=== PATIENT | female | born 1970 | race Caucasian/White ===

== ENCOUNTER → 2019-01-01 | Outpatient (CLI) | payer MEDICARE ==
[2019-01-01 12:55] LABS: Alanine Aminotransfer (ALT/SGP 21 U/L (12-78); Albumin, Blood 3.8 g/dL (3.4-5.0); Alk Phos 96 U/L (40-126); Anion Gap 11 mmol/L (6-16); Aspartate Aminotrans (AST/SGOT 17 U/L (12-37); Bilirubin, Total 0.3 mg/dL (0.1-1.0); Blood Urea Nitrogen 15 mg/dL (8-24); Bun/Creatinine Ratio 18.1 (12.0-20.0); CO2, Blood 27 mmol/L (21-32); Chloride, Blood 102 mmol/L (98-108); Creatinine, Blood 0.83 mg/dL (0.40-1.00); Globulin, Blood 3.8 g/dL (2.2-4.0); Glomerular Filtration Rate >60 (60-); Glucose, Blood 113 mg/dL (70-99); Sodium, Blood 140 mmol/L (136-145); Total Protein, Blood 7.6 g/dL (6.4-8.2)
[2019-01-01 13:03] LABS: BASOPHILS ABSOLUTE AUTO 0.08 K/mm3 (0.00-0.23); BASOPHILS PERCENT AUTO 1 % (0-2); EOSINOPHILS ABSOLUTE AUTO 0.36 K/mm3 (0.00-0.68); EOSINOPHILS PERCENT AUTO 4 % (0-6); Hematocrit 34.1 % (33.0-51.0); Hemoglobin 9.6 g/dL (11.5-16.0); IMMATURE GRAN ABSOLUTE AUTO 0.02 K/mm3 (0.00-0.10); IMMATURE GRAN PERCENT AUTO 0 % (0-1); LYMPHOCYTES ABSOLUTE AUTO 1.78 K/mm3 (0.84-5.20); LYMPHOCYTES PERCENT AUTO 19 % (21-46); MONOCYTES PERCENT AUTO 5 % (4-13); Mean Corpuscular HGB 20.6 pg (26.0-34.0); Mean Corpuscular HGB Conc 28.2 g/dL (31.5-36.5); Mean Corpuscular Volume 73 fL (80-100); Mean Platelet Volume 9.8 fL (9.1-12.4); NEUTROPHILS ABSOLUTE AUTO 6.72 K/mm3 (1.96-9.15); NEUTROPHILS PERCENT AUTO 71 % (41-73); Platelet Count 385 K/mm3 (150-400); RDW Coefficient Variation 17.3 % (11.7-14.2); Red Blood Cell Count 4.66 M/mm3 (3.80-5.20); White Blood Cell Count 9.46 K/mm3 (4.00-11.30)
== END | disposition home or self-care (01) ==
LOC: LAB SHORT 12:39 → LAB EV 12:39
PROVIDERS: Physician Assistant
DX: G40.909 Epilepsy, unspecified, not intractable, without status epilepticus (principal)
CPT/HCPCS: 80053; 85025

== ENCOUNTER → 2020-01-13 | Outpatient (CLI) | payer MEDICARE, OTHER ==
[~2020-01-13] MED LIST: IRON150C PO; LAMO100 PO
[2020-01-13 14:32] LABS: BASOPHILS ABSOLUTE AUTO 0.08 K/mm3 (0.00-0.23); BASOPHILS PERCENT AUTO 1 % (0-2); EOSINOPHILS ABSOLUTE AUTO 0.47 K/mm3 (0.00-0.68); EOSINOPHILS PERCENT AUTO 5 % (0-6); Hematocrit 29.4 % (33.0-51.0); Hemoglobin 8.5 g/dL (11.5-16.0); IMMATURE GRAN ABSOLUTE AUTO 0.03 K/mm3 (0.00-0.10); IMMATURE GRAN PERCENT AUTO 0 % (0-1); LYMPHOCYTES ABSOLUTE AUTO 1.86 K/mm3 (0.84-5.20); LYMPHOCYTES PERCENT AUTO 18 % (21-46); MONOCYTES PERCENT AUTO 6 % (4-13); Mean Corpuscular HGB 20.6 pg (26.0-34.0); Mean Corpuscular HGB Conc 28.9 g/dL (31.5-36.5); Mean Corpuscular Volume 71 fL (80-100); Mean Platelet Volume 9.9 fL (9.1-12.4); NEUTROPHILS ABSOLUTE AUTO 7.48 K/mm3 (1.96-9.15); NEUTROPHILS PERCENT AUTO 71 % (41-73); Platelet Count 359 K/mm3 (150-400); RDW Coefficient Variation 17.5 % (11.7-14.2); RDW Standard Deviation 43.9 fL (35.1-46.3); Red Blood Cell Count 4.13 M/mm3 (3.80-5.20); White Blood Cell Count 10.52 K/mm3 (4.00-11.30)
[2020-01-13 14:45] LABS: Alanine Aminotransfer (ALT/SGP 24 U/L (12-78); Albumin, Blood 3.8 g/dL (3.4-5.0); Albumin/Globulin Ratio 0.9 (0.8-1.8); Alk Phos 92 U/L (40-126); Anion Gap 9 mmol/L (6-16); Aspartate Aminotrans (AST/SGOT 19 U/L (12-37); Bilirubin, Total 0.3 mg/dL (0.1-1.0); Blood Urea Nitrogen 10 mg/dL (8-24); Bun/Creatinine Ratio 14.7 (12.0-20.0); CO2, Blood 27 mmol/L (21-32); Calcium, Blood 8.3 mg/dL (8.5-10.1); Chloride, Blood 104 mmol/L (98-108); Creatinine, Blood 0.68 mg/dL (0.40-1.00); Globulin, Blood 4.1 g/dL (2.2-4.0); Glomerular Filtration Rate >60 (60-); Glucose, Blood 92 mg/dL (70-99); Potassium, Blood 3.8 mmol/L (3.5-5.5); Sodium, Blood 140 mmol/L (136-145); Total Protein, Blood 7.9 g/dL (6.4-8.2)
== END ==
LOC: LAB EV 14:28 → LAB SHORT 14:28
PROVIDERS: Physician Assistant
DX: G40.909 Epilepsy, unspecified, not intractable, without status epilepticus (principal)
CPT/HCPCS: 80053; 85025

== ENCOUNTER → 2020-03-30 | Outpatient (CLI) | payer MEDICARE, OTHER ==
[2020-04-01 16:08] LABS: CHLAMYDIA BY NAA Negative (Negative); GONOCOCCUS BY NAA Negative (Negative); TRICH VAG BY NAA Negative (Negative)
== END | disposition home or self-care (01) ==
LOC: LAB EV 16:15 → LAB SHORT 16:15
PROVIDERS: Physician Assistant Medical
DX: N93.9 Abnormal uterine and vaginal bleeding, unspecified (principal)
CPT/HCPCS: 87491; 87591; 87661

== ENCOUNTER 2020-07-19 15:00 | Emergency (ER) | payer MEDICARE, OTHER ==
[~2020-07-19] VITALS: Ht 157.5 cm; Wt 68.0 kg
[~2020-07-19 15:00] MED LIST changes: +ASPI81CH; +ATOR20; +FERSU300; +Lamictal150 MG PO; +MGO400 MG PO; +SODCHL1
[2020-07-19 15:43] LABS: BASOPHILS ABSOLUTE AUTO 0.07 K/mm3 (0.00-0.23); BASOPHILS PERCENT AUTO 1 % (0-2); EOSINOPHILS ABSOLUTE AUTO 0.39 K/mm3 (0.00-0.68); EOSINOPHILS PERCENT AUTO 4 % (0-6); Hematocrit 36.2 % (33.0-51.0); Hemoglobin 11.8 g/dL (11.5-16.0); IMMATURE GRAN ABSOLUTE AUTO 0.03 K/mm3 (0.00-0.10); IMMATURE GRAN PERCENT AUTO 0 % (0-1); LYMPHOCYTES ABSOLUTE AUTO 3.22 K/mm3 (0.84-5.20); LYMPHOCYTES PERCENT AUTO 32 % (21-46); MONOCYTES PERCENT AUTO 6 % (4-13); Mean Corpuscular HGB 27.4 pg (26.0-34.0); Mean Corpuscular HGB Conc 32.6 g/dL (31.5-36.5); Mean Corpuscular Volume 84 fL (80-100); NEUTROPHILS ABSOLUTE AUTO 5.86 K/mm3 (1.96-9.15); NEUTROPHILS PERCENT AUTO 58 % (41-73); Platelet Count 314 K/mm3 (150-400); RDW Coefficient Variation 23.9 % (11.7-14.2); RDW Standard Deviation 68.8 fL (35.1-46.3); Red Blood Cell Count 4.31 M/mm3 (3.80-5.20); White Blood Cell Count 10.17 K/mm3 (4.00-11.30)
[2020-07-19 16:07] LABS: Valproic Acid 3.3 ug/mL (50.0-100.0)
[2020-07-19 16:08] LABS: Alanine Aminotransfer (ALT/SGP 26 U/L (12-78); Albumin, Blood 4.2 g/dL (3.4-5.0); Albumin/Globulin Ratio 1.2 (0.8-1.8); Alk Phos 96 U/L (50-136); Anion Gap 8 mmol/L (6-16); Aspartate Aminotrans (AST/SGOT 15 U/L (12-37); Bilirubin, Total 0.5 mg/dL (0.1-1.0); Blood Urea Nitrogen 13 mg/dL (8-24); Bun/Creatinine Ratio 17.8 (12.0-20.0); CO2, Blood 25 mmol/L (21-32); Calcium, Blood 9.3 mg/dL (8.5-10.1); Chloride, Blood 107 mmol/L (98-108); Creatinine, Blood 0.73 mg/dL (0.40-1.00); Globulin, Blood 3.5 g/dL (2.2-4.0); Glomerular Filtration Rate >60 (60-); Glucose, Blood 128 mg/dL (70-99); Potassium, Blood 3.7 mmol/L (3.5-5.5); Sodium, Blood 140 mmol/L (136-145); Total Protein, Blood 7.7 g/dL (6.4-8.2)
[2020-07-19 19:35] LABS: Appearance, Urine Clear (Clear); Bilirubin, Urine Neg (Neg); Blood, Urine Neg (Neg); Color, Urine Yellow (P-Yellow); Glucose Qualitative, Urine Neg (Neg); Ketones, Urine Neg (Neg); Leukocyte Esterase, Urine Neg (Neg); Nitrite, Urine Neg (Neg); Protein, Urine 1+ (Neg); Urobilinogen, Urine NORM (Normal)
[2020-07-19 19:47] LABS: U Amphetamine Screen Not Detected; U Barbituate Screen Not Detected; U Benzodiazapine Screen Not Detected; U Buprenorphine Screen Not Detected; U Cannabinoids Screen Not Detected; U Cocaine Screen Not Detected; U Methadone Screen Not Detected; U Methamphetamine Screen Not Detected; U Opiates Screen Not Detected; U Oxycodone Screen Not Detected; U Phencyclidine Screen Not Detected; U Propoxyphene Screen Not Detected
[2020-07-19] MEDS ORDERED: Lamictal150 MG PO (19:59)
== END 2020-07-19 20:09 | disposition home or self-care (01) ==
LOC: ER 15:00
PROVIDERS: Emergency Medicine; Physician Assistant
DX: G40.909 Epilepsy, unspecified, not intractable, without status epilepticus (principal); S80.212A Abrasion, left knee, initial encounter; S09.90XA Unspecified injury of head, initial encounter; Z79.82 Long term (current) use of aspirin; Z79.899 Other long term (current) drug therapy; W18.30XA Fall on same level, unspecified, initial encounter; Y92.481 Parking lot as the place of occurrence of the external cause
CPT/HCPCS: 70450; 80053; 80164; 85025; 93005; 93010; 99285-25

== ENCOUNTER 2020-09-05 21:40 | Emergency (ER) | payer MEDICARE, OTHER ==
[~2020-09-05] VITALS: Ht 157.5 cm; Wt 68.0 kg
[2020-09-05 22:23] LABS: BASOPHILS ABSOLUTE AUTO 0.07 K/mm3 (0.00-0.23); BASOPHILS PERCENT AUTO 1 % (0-2); EOSINOPHILS ABSOLUTE AUTO 0.39 K/mm3 (0.00-0.68); EOSINOPHILS PERCENT AUTO 5 % (0-6); Hematocrit 36.8 % (33.0-51.0); Hemoglobin 12.1 g/dL (11.5-16.0); IMMATURE GRAN ABSOLUTE AUTO 0.02 K/mm3 (0.00-0.10); IMMATURE GRAN PERCENT AUTO 0 % (0-1); LYMPHOCYTES ABSOLUTE AUTO 2.09 K/mm3 (0.84-5.20); LYMPHOCYTES PERCENT AUTO 25 % (21-46); MONOCYTES ABSOLUTE AUTO 0.55 K/mm3 (0.16-1.47); MONOCYTES PERCENT AUTO 6 % (4-13); Mean Corpuscular HGB 28.1 pg (26.0-34.0); Mean Corpuscular HGB Conc 32.9 g/dL (31.5-36.5); Mean Corpuscular Volume 85 fL (80-100); Mean Platelet Volume 9.5 fL (9.1-12.4); NEUTROPHILS ABSOLUTE AUTO 5.41 K/mm3 (1.96-9.15); NEUTROPHILS PERCENT AUTO 64 % (41-73); Platelet Count 375 K/mm3 (150-400); RDW Coefficient Variation 13.3 % (11.7-14.2); Red Blood Cell Count 4.31 M/mm3 (3.80-5.20); White Blood Cell Count 8.53 K/mm3 (4.00-11.30)
[2020-09-05 22:43] LABS: Alanine Aminotransfer (ALT/SGP 18 U/L (12-78); Albumin, Blood 4.4 g/dL (3.4-5.0); Albumin/Globulin Ratio 1.3 (0.8-1.8); Alk Phos 81 U/L (50-136); Anion Gap 7 mmol/L (6-16); Aspartate Aminotrans (AST/SGOT 14 U/L (12-37); Bilirubin, Total 0.6 mg/dL (0.1-1.0); Blood Urea Nitrogen 8 mg/dL (8-24); Bun/Creatinine Ratio 10.3 (12.0-20.0); CO2, Blood 27 mmol/L (21-32); Calcium, Blood 9.4 mg/dL (8.5-10.1); Chloride, Blood 106 mmol/L (98-108); Creatinine, Blood 0.78 mg/dL (0.40-1.00); Globulin, Blood 3.4 g/dL (2.2-4.0); Glomerular Filtration Rate >60 (60-); Glucose, Blood 112 mg/dL (70-99); Potassium, Blood 3.2 mmol/L (3.5-5.5); Sodium, Blood 140 mmol/L (136-145); Total Protein, Blood 7.8 g/dL (6.4-8.2); Troponin I <0.015 ng/mL (0.000-0.040)
[2020-09-05] MEDS ORDERED: ZEBUTAL 50-3251 EAC1 PO (23:36)
== END 2020-09-05 23:57 | disposition home or self-care (01) ==
LOC: ER 21:40
PROVIDERS: Physician Assistant
DX: R51.9 Headache, unspecified (principal); Z79.82 Long term (current) use of aspirin; Z79.899 Other long term (current) drug therapy
CPT/HCPCS: 36415; 71046; 80053; 84484; 85025; 93005; 93010; 99284-25

== ENCOUNTER 2020-11-12 20:25 | Emergency (ER) | payer MEDICARE, OTHER ==
[~2020-11-12] VITALS: Ht 162.6 cm; Wt 64.9 kg
[~2020-11-12 20:25] MED LIST changes: +ZEBUTAL 50-3251 EAC1 PO
[2020-11-12] MEDS ORDERED: ATOR40TA PO (20:48)
[2020-11-12] MEDS ORDERED: Aspir 8181 MG PO (20:49)
[2020-11-12] MEDS ORDERED: FERSU300 PO (20:49)
[2020-11-12 20:52] LABS: BASOPHILS ABSOLUTE AUTO 0.07 K/mm3 (0.00-0.23); BASOPHILS PERCENT AUTO 1 % (0-2); EOSINOPHILS ABSOLUTE AUTO 0.35 K/mm3 (0.00-0.68); EOSINOPHILS PERCENT AUTO 4 % (0-6); Hematocrit 29.2 % (33.0-51.0); Hemoglobin 9.2 g/dL (11.5-16.0); IMMATURE GRAN ABSOLUTE AUTO 0.02 K/mm3 (0.00-0.10); IMMATURE GRAN PERCENT AUTO 0 % (0-1); LYMPHOCYTES ABSOLUTE AUTO 2.41 K/mm3 (0.84-5.20); LYMPHOCYTES PERCENT AUTO 24 % (21-46); MONOCYTES ABSOLUTE AUTO 0.64 K/mm3 (0.16-1.47); MONOCYTES PERCENT AUTO 7 % (4-13); Mean Corpuscular HGB 26.4 pg (26.0-34.0); Mean Corpuscular HGB Conc 31.5 g/dL (31.5-36.5); Mean Corpuscular Volume 84 fL (80-100); Mean Platelet Volume 9.7 fL (9.1-12.4); NEUTROPHILS ABSOLUTE AUTO 6.41 K/mm3 (1.96-9.15); NEUTROPHILS PERCENT AUTO 65 % (41-73); Platelet Count 386 K/mm3 (150-400); RDW Coefficient Variation 13.3 % (11.7-14.2); RDW Standard Deviation 41.1 fL (35.1-46.3); Red Blood Cell Count 3.48 M/mm3 (3.80-5.20)
[2020-11-12 21:10] LABS: Alanine Aminotransfer (ALT/SGP 22 U/L (12-78); Albumin, Blood 3.8 g/dL (3.4-5.0); Albumin/Globulin Ratio 1.1 (0.8-1.8); Alk Phos 87 U/L (50-136); Anion Gap 7 mmol/L (6-16); Aspartate Aminotrans (AST/SGOT 17 U/L (12-37); Bilirubin, Total 0.3 mg/dL (0.1-1.0); Blood Urea Nitrogen 12 mg/dL (8-24); Bun/Creatinine Ratio 16.7 (12.0-20.0); CO2, Blood 24 mmol/L (21-32); Calcium, Blood 8.8 mg/dL (8.5-10.1); Chloride, Blood 111 mmol/L (98-108); Creatinine, Blood 0.72 mg/dL (0.40-1.00); Globulin, Blood 3.5 g/dL (2.2-4.0); Glomerular Filtration Rate >60 (60-); Glucose, Blood 87 mg/dL (70-99); Potassium, Blood 3.7 mmol/L (3.5-5.5); Sodium, Blood 142 mmol/L (136-145); Total Protein, Blood 7.3 g/dL (6.4-8.2)
== END 2020-11-12 22:12 | disposition home or self-care (01) ==
LOC: ER 20:25
PROVIDERS: Emergency Medicine
DX: R20.0 Anesthesia of skin (principal); R20.2 Paresthesia of skin; G40.909 Epilepsy, unspecified, not intractable, without status epilepticus; Z79.899 Other long term (current) drug therapy; Z79.82 Long term (current) use of aspirin; Z86.73 Personal history of transient ischemic attack (TIA), and cerebral infarction without residual deficits
CPT/HCPCS: 70450; 80053; 85025; 93005; 93010; 99285-25

== ENCOUNTER 2021-04-21 14:30 | Emergency (ER) | payer MEDICARE, OTHER ==
[~2021-04-21] VITALS: Ht 157.5 cm; Wt 60.3 kg
[~2021-04-21 14:30] MED LIST changes: +ATOR40TA PO; +Aspir 8181 MG PO; +FERSU300 PO
== END 2021-04-21 16:21 | disposition home or self-care (01) ==
LOC: ER 14:30
DX: R51.9 Headache, unspecified (principal); R53.1 Weakness; Z79.82 Long term (current) use of aspirin; Z79.899 Other long term (current) drug therapy
CPT/HCPCS: 93005; 93010; 96372; 99284-25; A9270; J1885

== ENCOUNTER 2021-05-10 09:19 | Emergency (ER) | payer MEDICARE, OTHER ==
[~2021-05-10] VITALS: Ht 157.5 cm; Wt 59.4 kg
[2021-05-10] MEDS ORDERED: CLOBETTC TOP (10:07)
== END 2021-05-10 10:18 | disposition home or self-care (01) ==
LOC: ER 09:19
DX: R51.9 Headache, unspecified (principal); R21 Rash and other nonspecific skin eruption; R59.0 Localized enlarged lymph nodes; Z79.82 Long term (current) use of aspirin; Z79.899 Other long term (current) drug therapy
CPT/HCPCS: 99283

== ENCOUNTER 2021-06-08 01:36 | Emergency (ER) | payer MEDICARE, OTHER ==
[~2021-06-08] VITALS: Ht 157.5 cm; Wt 60.8 kg
[~2021-06-08 01:36] MED LIST changes: +CLOBETTC TOP
[2021-06-08] MEDS ORDERED: SUBVENITE150 M1 PO (02:32)
== END 2021-06-08 03:49 | disposition home or self-care (01) ==
LOC: ER 01:36
DX: G40.909 Epilepsy, unspecified, not intractable, without status epilepticus (principal); Z91.14 Patient's other noncompliance with medication regimen; Z79.82 Long term (current) use of aspirin
CPT/HCPCS: 93005; 93010; 99284-25; A9270

== ENCOUNTER 2021-07-01 17:05 | Emergency (ER) | payer MEDICARE, OTHER ==
[~2021-07-01] VITALS: Ht 157.5 cm; Wt 59.0 kg
[~2021-07-01 17:05] MED LIST changes: +SUBVENITE150 M1 PO
== END 2021-07-01 18:07 | disposition home or self-care (01) ==
LOC: ER 17:05
DX: E86.0 Dehydration (principal); R51.9 Headache, unspecified; Z79.82 Long term (current) use of aspirin; Z79.899 Other long term (current) drug therapy
CPT/HCPCS: 96372; 99283-25; J1885

== ENCOUNTER 2021-10-02 18:58 | Observation (INO) | payer MEDICARE, OTHER ==
[~2021-10-02] VITALS: Ht 157.5 cm; Wt 63.5 kg
[2021-10-02 19:32] LABS: Hemoglobin 8.7 g/dL (11.5-16.0); Mean Corpuscular HGB Conc 26.4 g/dL (31.5-36.5); Mean Corpuscular Volume 72 fL (80-100); Platelet Count 705 K/mm3 (150-400); RDW Coefficient Variation 17.9 % (11.7-14.2); RDW Standard Deviation 46.7 fL (35.1-46.3); Red Blood Cell Count 4.59 M/mm3 (3.80-5.20); White Blood Cell Count 29.66 K/mm3 (4.00-11.30)
[2021-10-02 19:41] LABS: Source, Urine Catheter
[2021-10-02 19:47] LABS: Appearance, Urine Clear (Clear); Bilirubin, Urine Neg (Neg); Blood, Urine 1+ (Neg); Color, Urine Yellow (P-Yellow); Glucose Qualitative, Urine Neg (Neg); Ketones, Urine 1+ (Neg); Leukocyte Esterase, Urine Neg (Neg); Nitrite, Urine Neg (Neg); Protein, Urine 3+ (Neg); Specific Gravity, Urine 1.015 (1.003-1.022); Urobilinogen, Urine NORM (Normal)
[2021-10-02 19:54] LABS: Alanine Aminotransfer (ALT/SGP 20 U/L (12-78); Albumin/Globulin Ratio 0.9 (0.8-1.8); Alk Phos 84 U/L (50-136); Anion Gap 19 mmol/L (6-16); Aspartate Aminotrans (AST/SGOT 18 U/L (12-37); Bilirubin, Total 0.5 mg/dL (0.1-1.0); Blood Urea Nitrogen 10 mg/dL (8-24); Bun/Creatinine Ratio 11.4 (12.0-20.0); CO2, Blood 12 mmol/L (21-32); Calcium, Blood 9.4 mg/dL (8.5-10.1); Chloride, Blood 107 mmol/L (98-108); Creatinine, Blood 0.87 mg/dL (0.40-1.00); Ethanol (Alcohol), Blood, Med 3 mg/dL; Globulin, Blood 4.3 g/dL (2.2-4.0); Glomerular Filtration Rate >60 (60-); Glucose, Blood 198 mg/dL (70-99); Potassium, Blood 3.7 mmol/L (3.5-5.5); Sodium, Blood 138 mmol/L (136-145); Total Protein, Blood 8.3 g/dL (6.4-8.2)
[2021-10-02 19:57] LABS: U Amphetamine Screen Not Detected; U Barbituate Screen Not Detected; U Benzodiazapine Screen Not Detected; U Buprenorphine Screen Not Detected; U Cannabinoids Screen Not Detected; U Cocaine Screen Not Detected; U Methadone Screen Not Detected; U Methamphetamine Screen Not Detected; U Opiates Screen Not Detected; U Oxycodone Screen Not Detected; U Phencyclidine Screen Not Detected; U Propoxyphene Screen Not Detected
[2021-10-02 20:00] LABS: Bacteria Few /hpf; Hyaline Casts 0-2 /lpf (0-2); Squamous Epithelial Cells Few /hpf (Few)
[2021-10-02 20:18] LABS: BAND PERCENT MAN 1 % (0-8); BASOPHILS ABSOLUTE MAN 0.29 K/mm3 (0.00-0.23); BASOPHILS PERCENT MAN 1 % (0-2); EOSINOPHILS ABSOLUTE MAN 0.29 K/mm3 (0.00-0.68); EOSINOPHILS PERCENT MAN 1 % (0-6); LYMPHOCYTES ABSOLUTE MAN 7.41 K/mm3 (0.84-5.20); LYMPHOCYTES PERCENT MAN 25 % (21-46); MONOCYTES ABSOLUTE MAN 1.48 K/mm3 (0.16-1.47); MONOCYTES PERCENT MAN 5 % (4-13); MYELOCYTE ABSOLUTE MAN 0.29 K/mm3 (0.00-0.00); MYELOCYTE PERCENT MAN 1 % (0-0); NEUTROPHILS ABSOLUTE MAN 19.87 K/mm3 (1.96-9.15); SEG NEUTROPHILS PERCENT MAN 66 % (41-73); TOTAL CELLS COUNTED 100
[2021-10-03 06:07] LABS: Hematocrit 26.2 % (33.0-51.0); Hemoglobin 7.5 g/dL (11.5-16.0); Mean Corpuscular HGB Conc 28.6 g/dL (31.5-36.5); Mean Platelet Volume 9.4 fL (9.1-12.4); Platelet Count 366 K/mm3 (150-400); RDW Coefficient Variation 17.3 % (11.7-14.2); RDW Standard Deviation 41.8 fL (35.1-46.3); Red Blood Cell Count 3.95 M/mm3 (3.80-5.20); White Blood Cell Count 16.48 K/mm3 (4.00-11.30)
[2021-10-03 06:12] LABS: Mean Corpuscular Volume 66 fL (80-100)
[2021-10-03] MEDS ORDERED: SUBVENITE150 M1 PO (11:59)
[2021-10-03] MEDS ORDERED: VITAMIN C125 MG PO (12:00)
[2021-10-03] MEDS ORDERED: FERSU300 PO (12:01)
== END 2021-10-03 21:55 | disposition home or self-care (01) ==
LOC: ER 18:58 → ERHOLD 18:59
PROVIDERS: Student in an Organized Health Care Education/Training Program; ADMIT Internal Medicine
DX: G40.909 Epilepsy, unspecified, not intractable, without status epilepticus (principal); D72.829 Elevated white blood cell count, unspecified; I69.954 Hemiplegia and hemiparesis following unspecified cerebrovascular disease affecting left non-dominant side
CPT/HCPCS: 36415; 70450; 71045; 80053; 81001; 84145; 85025; 85027; 93005; 93010; 96365; 96372; 99285-25; A9270; G0378; G0480; J1650; J1953; P9612

== ENCOUNTER 2021-10-18 20:34 | Observation (INO) | payer MEDICARE, OTHER ==
[~2021-10-18] VITALS: Ht 165.1 cm; Wt 63.5 kg
[~2021-10-18 20:34] MED LIST changes: +VITAMIN C125 MG PO
[2021-10-18 21:15] LABS: BASOPHILS ABSOLUTE AUTO 0.07 K/mm3 (0.00-0.23); BASOPHILS PERCENT AUTO 1 % (0-2); EOSINOPHILS ABSOLUTE AUTO 0.37 K/mm3 (0.00-0.68); EOSINOPHILS PERCENT AUTO 4 % (0-6); Hematocrit 26.9 % (33.0-51.0); Hemoglobin 7.7 g/dL (11.5-16.0); IMMATURE GRAN ABSOLUTE AUTO 0.07 K/mm3 (0.00-0.10); IMMATURE GRAN PERCENT AUTO 1 % (0-1); LYMPHOCYTES ABSOLUTE AUTO 1.06 K/mm3 (0.84-5.20); LYMPHOCYTES PERCENT AUTO 12 % (21-46); MONOCYTES ABSOLUTE AUTO 0.45 K/mm3 (0.16-1.47); MONOCYTES PERCENT AUTO 5 % (4-13); Mean Corpuscular HGB 19.3 pg (26.0-34.0); Mean Corpuscular HGB Conc 28.6 g/dL (31.5-36.5); Mean Corpuscular Volume 68 fL (80-100); NEUTROPHILS ABSOLUTE AUTO 6.72 K/mm3 (1.96-9.15); NEUTROPHILS PERCENT AUTO 77 % (41-73); RDW Coefficient Variation 17.8 % (11.7-14.2); RDW Standard Deviation 43.5 fL (35.1-46.3); Red Blood Cell Count 3.98 M/mm3 (3.80-5.20); White Blood Cell Count 8.74 K/mm3 (4.00-11.30)
[2021-10-18 21:40] LABS: Alanine Aminotransfer (ALT/SGP 16 U/L (12-78); Albumin, Blood 3.6 g/dL (3.4-5.0); Alk Phos 115 U/L (50-136); Anion Gap 8 mmol/L (6-16); Aspartate Aminotrans (AST/SGOT 21 U/L (12-37); Bilirubin, Total 0.3 mg/dL (0.1-1.0); Blood Urea Nitrogen 10 mg/dL (8-24); Bun/Creatinine Ratio 16.8 (12.0-20.0); CO2, Blood 23 mmol/L (21-32); Calcium, Blood 8.9 mg/dL (8.5-10.1); Chloride, Blood 108 mmol/L (98-108); Creatinine, Blood 0.59 mg/dL (0.40-1.00); Globulin, Blood 3.6 g/dL (2.2-4.0); Glomerular Filtration Rate >60 (60-); Glucose, Blood 105 mg/dL (70-99); Potassium, Blood 4.1 mmol/L (3.5-5.5); Sodium, Blood 139 mmol/L (136-145); Total Protein, Blood 7.2 g/dL (6.4-8.2)
[2021-10-18 23:47] LABS: Mean Platelet Volume 10.1 fL (9.1-12.4); Platelet Count 285 K/mm3 (150-400)
[2021-10-19 01:28] LABS: Ethanol (Alcohol), Blood, Med <3 mg/dL
--- NOTE | 2021-10-19 05:58 | NUR ---
PT ADMITTED FROM ER AT APPROX 0500 FOR SEIZURES. HX EPILEPSY. PT AWAKE AND OPENING EYES SPONTANEOUSLY. NONVERBAL AT THIS TIME AND UNABLE TO FOLLOW COMMANDS. PERLLA. VS WNL. TELE PLACED PER ORDERS; SR AT 63. IVF INFUSING PER EMAR. PT NPO. PLAN FOR EEG AND EVENTUALLY MRI. UNABLE TO COMPLETE MRI FORM AT THIS TIME D/T PT BEING NONVERBAL. IMAGING AWARE.
[2021-10-19 06:32] LABS: BASOPHILS ABSOLUTE AUTO 0.05 K/mm3 (0.00-0.23); BASOPHILS PERCENT AUTO 1 % (0-2); EOSINOPHILS PERCENT AUTO 4 % (0-6); Hematocrit 26.5 % (33.0-51.0); Hemoglobin 7.4 g/dL (11.5-16.0); IMMATURE GRAN ABSOLUTE AUTO 0.02 K/mm3 (0.00-0.10); IMMATURE GRAN PERCENT AUTO 0 % (0-1); LYMPHOCYTES ABSOLUTE AUTO 1.86 K/mm3 (0.84-5.20); LYMPHOCYTES PERCENT AUTO 18 % (21-46); MONOCYTES ABSOLUTE AUTO 0.58 K/mm3 (0.16-1.47); MONOCYTES PERCENT AUTO 6 % (4-13); Mean Corpuscular HGB 19.2 pg (26.0-34.0); Mean Corpuscular HGB Conc 27.9 g/dL (31.5-36.5); Mean Corpuscular Volume 69 fL (80-100); Mean Platelet Volume 9.7 fL (9.1-12.4); NEUTROPHILS ABSOLUTE AUTO 7.56 K/mm3 (1.96-9.15); NEUTROPHILS PERCENT AUTO 72 % (41-73); Platelet Count 377 K/mm3 (150-400); RDW Coefficient Variation 17.8 % (11.7-14.2); RDW Standard Deviation 44.1 fL (35.1-46.3); Red Blood Cell Count 3.86 M/mm3 (3.80-5.20); White Blood Cell Count 10.47 K/mm3 (4.00-11.30)
[2021-10-19 06:59] LABS: Anion Gap 7 mmol/L (6-16); Blood Urea Nitrogen 11 mg/dL (8-24); Bun/Creatinine Ratio 16.5 (12.0-20.0); CO2, Blood 26 mmol/L (21-32); Calcium, Blood 8.5 mg/dL (8.5-10.1); Chloride, Blood 108 mmol/L (98-108); Creatinine, Blood 0.67 mg/dL (0.40-1.00); Ferritin, Serum 4 ng/mL (8-252); Glomerular Filtration Rate >60 (60-); Glucose, Blood 90 mg/dL (70-99); Iron Serum 18 ug/dL (50-170); Percent Saturation 4.2 % (15.0-50.0); Potassium, Blood 3.6 mmol/L (3.5-5.5); Sodium, Blood 141 mmol/L (136-145); Total Iron Binding Capacity 429 ug/dL (250-450)
--- NOTE | 2021-10-19 08:40 | NUR ---
PT OPENS EYES WHEN SPOKEN TO, ORIENTED TO PERSON, PLACE TIME AND EVENTS. PT ANSWERING QUESTIONS IN FULL SENTENCES
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
--- NOTE | 2021-10-19 17:34 | NUR ---
PT AWAKE, ALERT USES CALL LIGHT TO CALL FOR ASSIST. PT REPORTS CONTINUES WITH SLIGHT TINGLING TO LEFT ARM AND LEG WHICH SHE REPORTS IS HER BASELINE. RONY PO FOOD AND FLUID. ORIENTED TO PERSON, PLACE AND TIME. [place]UAN[place] WITHOUT ANY SEIZURE ACTIVITY. PT ANTICIPATES DISCHARGE THIS EVENING SOON HER BOYFRIEND ARRIVES TO GIVE HER A RIDE HOME
--- NOTE | 2021-10-19 18:43 | NUR ---
DISCHARGED TO HOME WITH SIGNIFICANT OTHER. PT DENIES PAIN OR DISCOMFORT, AMBULATING INDEPENDENTLY. PT VERBALIZES UNDERSTANDING OF DISCHARGE INSTRUCTIONS. PT STATES SHE WILL CALL HER NEUROLOGIST TO ARRANGE FOLLOW UP CARE
--- NOTE | 2021-10-19 18:57 | NUR ---
1843 PT DISCHARGED AMBULATORY WITH SIGNIFICANT OTHER. PT DECLINED X3 TO BE TRANSPORTED TO CAR BY WHEELCHAIR
== END 2021-10-19 18:42 | disposition home or self-care (01) ==
LOC: ER 20:34 → SURS 20:35
PROVIDERS: Emergency Medicine; ADMIT Family Medicine
DX: G40.409 Other generalized epilepsy and epileptic syndromes, not intractable, without status epilepticus (principal); I69.354 Hemiplegia and hemiparesis following cerebral infarction affecting left non-dominant side; D64.9 Anemia, unspecified
CPT/HCPCS: 36415; 70450; 70551; 80048; 80053; 82607; 82728; 82746; 83540; 83550; 84146; 85025; 93005; 93010; 95819; 96365; 96366; 96367; 99285-25; A9270; G0378; G0480; J1953; J2916; J7030

== ENCOUNTER 2022-04-18 18:41 | Emergency (ER) | payer MEDICARE, OTHER ==
[~2022-04-18] VITALS: Ht 162.6 cm; Wt 65.8 kg
[2022-04-18 19:02] LABS: BASOPHILS ABSOLUTE AUTO 0.09 K/mm3 (0.00-0.23); BASOPHILS PERCENT AUTO 1 % (0-2); EOSINOPHILS ABSOLUTE AUTO 0.35 K/mm3 (0.00-0.68); EOSINOPHILS PERCENT AUTO 5 % (0-6); Hemoglobin 8.9 g/dL (11.5-16.0); IMMATURE GRAN ABSOLUTE AUTO 0.02 K/mm3 (0.00-0.10); IMMATURE GRAN PERCENT AUTO 0 % (0-1); LYMPHOCYTES PERCENT AUTO 15 % (21-46); MONOCYTES ABSOLUTE AUTO 0.35 K/mm3 (0.16-1.47); MONOCYTES PERCENT AUTO 5 % (4-13); Mean Corpuscular HGB 20.7 pg (26.0-34.0); Mean Corpuscular HGB Conc 28.7 g/dL (31.5-36.5); Mean Corpuscular Volume 72 fL (80-100); Mean Platelet Volume 9.7 fL (9.1-12.4); NEUTROPHILS ABSOLUTE AUTO 5.55 K/mm3 (1.96-9.15); NEUTROPHILS PERCENT AUTO 74 % (41-73); Platelet Count 314 K/mm3 (150-400); RDW Standard Deviation 44.3 fL (35.1-46.3); Red Blood Cell Count 4.29 M/mm3 (3.80-5.20); White Blood Cell Count 7.46 K/mm3 (4.00-11.30)
[2022-04-18 19:29] LABS: Albumin/Globulin Ratio 1.1 (0.8-1.8); Bilirubin, Total 0.4 mg/dL (0.1-1.0); Bun/Creatinine Ratio 12.3 (12.0-20.0); Calcium, Blood 9.3 mg/dL (8.5-10.1); Creatinine, Blood 0.82 mg/dL (0.40-1.00); Globulin, Blood 3.7 g/dL (2.2-4.0); Potassium, Blood 3.7 mmol/L (3.5-5.5); Total Protein, Blood 7.7 g/dL (6.4-8.2)
[2022-04-18] MEDS ORDERED: SUBVENITE150 M1 PO (21:29)
== END 2022-04-18 21:51 | disposition home or self-care (01) ==
LOC: ER 18:41
PROVIDERS: Emergency Medicine
DX: G40.909 Epilepsy, unspecified, not intractable, without status epilepticus (principal); I69.354 Hemiplegia and hemiparesis following cerebral infarction affecting left non-dominant side; H53.8 Other visual disturbances; R51.9 Headache, unspecified; D64.9 Anemia, unspecified
CPT/HCPCS: 36415; 70450; 80053; 85025; 99284-25; A9270

== ENCOUNTER 2022-05-21 12:09 | Observation (INO) | payer MEDICARE, OTHER ==
[~2022-05-21] VITALS: Ht 157.5 cm; Wt 65.7 kg
[2022-05-21] MEDS ORDERED: Lamictal150 MG PO (12:21)
[2022-05-21] MEDS ORDERED: SUBVENITE150 M1 PO (12:22)
[2022-05-21 14:22] LABS: BASOPHILS ABSOLUTE AUTO 0.16 K/mm3 (0.00-0.23); BASOPHILS PERCENT AUTO 1 % (0-2); EOSINOPHILS ABSOLUTE AUTO 0.65 K/mm3 (0.00-0.68); EOSINOPHILS PERCENT AUTO 4 % (0-6); Hematocrit 36.8 % (33.0-51.0); Hemoglobin 10.4 g/dL (11.5-16.0); Mean Corpuscular HGB 21.2 pg (26.0-34.0); Mean Corpuscular HGB Conc 28.3 g/dL (31.5-36.5); Mean Corpuscular Volume 75 fL (80-100); Mean Platelet Volume 10.4 fL (9.1-12.4); Platelet Count 441 K/mm3 (150-400); RDW Coefficient Variation 17.1 % (11.7-14.2); RDW Standard Deviation 45.1 fL (35.1-46.3); Red Blood Cell Count 4.91 M/mm3 (3.80-5.20); White Blood Cell Count 15.33 K/mm3 (4.00-11.30)
[2022-05-21 14:32] LABS: IMMATURE GRAN ABSOLUTE AUTO 0.04 K/mm3 (0.00-0.10); IMMATURE GRAN PERCENT AUTO 0 % (0-1); LYMPHOCYTES ABSOLUTE AUTO 4.43 K/mm3 (0.84-5.20); LYMPHOCYTES PERCENT AUTO 29 % (21-46); MONOCYTES ABSOLUTE AUTO 0.88 K/mm3 (0.16-1.47); MONOCYTES PERCENT AUTO 6 % (4-13); NEUTROPHILS ABSOLUTE AUTO 9.17 K/mm3 (1.96-9.15); NEUTROPHILS PERCENT AUTO 60 % (41-73)
[2022-05-21 14:43] LABS: Albumin, Blood 4.5 g/dL (3.4-5.0); Albumin/Globulin Ratio 1.1 (0.8-1.8); Bilirubin, Total 0.5 mg/dL (0.1-1.0); Bun/Creatinine Ratio 20.7 (12.0-20.0); Calcium, Blood 9.3 mg/dL (8.5-10.1); Creatinine, Blood 0.73 mg/dL (0.40-1.00); Globulin, Blood 4.1 g/dL (2.2-4.0); Magnesium, Blood 2.3 mg/dL (1.6-2.4); Total Protein, Blood 8.6 g/dL (6.4-8.2)
[2022-05-21 18:27] LABS: U Amphetamine Screen Not Detected; U Barbituate Screen Not Detected; U Benzodiazapine Screen Not Detected; U Buprenorphine Screen Not Detected; U Cannabinoids Screen Not Detected; U Cocaine Screen Not Detected; U Methadone Screen Not Detected; U Methamphetamine Screen Not Detected; U Opiates Screen Not Detected; U Oxycodone Screen Not Detected; U Phencyclidine Screen Not Detected; U Propoxyphene Screen Not Detected
--- NOTE | 2022-05-21 21:19 | NUR ---
UPDATE PT ARRIVED TO UNIT AT 2024. VSS. PT LETHARGIC AT THIS TIME, UNABLE TO GIVE MEDICAL HX OR CONSENTS. SISTER TERESA CALLED FOR UPDATE ON PT. CONFIRMED WITH SIGNIFICAT OTHER YUE THAT TERESA CAN RECIEVE INFORMATION. OKAY TO GIVE TERESA INFORMATION AT THIS TIME PER SPOUSE. PICS OF WOUNDS IN CHART. NO SEIZURE ACTIVITY AT THIS TIME. WILL CONT TO MONITOR.
[2022-05-22 04:01] LABS: BASOPHILS ABSOLUTE AUTO 0.07 K/mm3 (0.00-0.23); BASOPHILS PERCENT AUTO 1 % (0-2); EOSINOPHILS ABSOLUTE AUTO 0.18 K/mm3 (0.00-0.68); EOSINOPHILS PERCENT AUTO 2 % (0-6); Hematocrit 29.1 % (33.0-51.0); Hemoglobin 8.5 g/dL (11.5-16.0); IMMATURE GRAN ABSOLUTE AUTO 0.04 K/mm3 (0.00-0.10); IMMATURE GRAN PERCENT AUTO 0 % (0-1); LYMPHOCYTES ABSOLUTE AUTO 1.44 K/mm3 (0.84-5.20); LYMPHOCYTES PERCENT AUTO 13 % (21-46); MONOCYTES ABSOLUTE AUTO 0.61 K/mm3 (0.16-1.47); MONOCYTES PERCENT AUTO 6 % (4-13); Mean Corpuscular HGB 20.7 pg (26.0-34.0); Mean Corpuscular HGB Conc 29.2 g/dL (31.5-36.5); Mean Corpuscular Volume 71 fL (80-100); Mean Platelet Volume 10.3 fL (9.1-12.4); NEUTROPHILS ABSOLUTE AUTO 8.46 K/mm3 (1.96-9.15); NEUTROPHILS PERCENT AUTO 78 % (41-73); Platelet Count 293 K/mm3 (150-400); RDW Coefficient Variation 16.8 % (11.7-14.2); RDW Standard Deviation 42.5 fL (35.1-46.3)
[2022-05-22 04:54] LABS: Albumin, Blood 3.6 g/dL (3.4-5.0); Albumin/Globulin Ratio 1.2 (0.8-1.8); Bilirubin, Total 0.5 mg/dL (0.1-1.0); Bun/Creatinine Ratio 15.6 (12.0-20.0); Calcium, Blood 8.4 mg/dL (8.5-10.1); Creatinine, Blood 0.71 mg/dL (0.40-1.00); Potassium, Blood 3.9 mmol/L (3.5-5.5)
[2022-05-22 04:55] LABS: Total Protein, Blood 6.6 g/dL (6.4-8.2)
--- NOTE | 2022-05-22 06:33 | NUR ---
SHIFT SUMMARY PT ALERT TO SELF AND LOCATION AT TIMES. CONFUSED AND LETHARGIC T/O SHIFT. BED ALARM IN PLACE. PT ATTMEPTED TO GET OUT OF BED MULTIPLE TIMES. REMINDED TO USE CALL LIGHT FOR SAFETY. PT HAD SEIZURE WHILE IN ED AND HAS LACERATION AND BRUISING TO L SIDE OF FACE. WOUND CLEANED, PETROLEUM DRESSING APPLIED AND NON ADHERENT DRESSING APPLIED. SEE PICS IN CHART. SEIZURE PADS ON BED. SUCTION SET UP. NO SEIZURES T/O SHIFT. HR STABLE. BP STABLE. NO CP OR PRESSURE REPORTED. PT UNABLE TO SIGN CONSENTS OR GIVE HX AT THIS TIME. PT ABLE TO TURN SELF IN BED. CALL LIGHT WITHIN REACH. WILL CONT TO MONITOR UNTIL REPORT GIVEN TO DAYSMARKO RN.
[2022-05-22 14:16] LABS: Hematocrit 28.9 % (33.0-51.0); Hemoglobin 8.6 g/dL (11.5-16.0)
[2022-05-22 14:28] LABS: Percent Saturation 4.3 % (15.0-50.0)
[2022-05-22] MEDS ORDERED: LAMO100 PO (16:13)
--- NOTE | 2022-05-22 16:53 | NUR ---
Discharge Summary Pt denies serizure t/o shift, this rn has noted no seizures. This am pt reposinding easily to verbal stimuli, this afternoon pt alert; oriented x4. Pt reports dizziness and headache this afternoon, notified Dr Urbina, new order for tylenol, administered with minimal results. Pt denies chest pain/pressure, sob, nausea. Pt reports numbness at baseline. Bruising and swelling noted to left eye, cleaned and dressing changed this evening. Vss. No other acute changes noted. Educated pt on discharge insturctions, follow up appointments and medications. Discussed setting up auto refills at pharmacy or setting alarms in phone to reminder to fill prescriptions. Educated pt on importance of taking medciations as prescribed and compliance. Prescriptions faxed to [facility] in [place] per pt request, called to confirm they receivied it, they plan to have ready for patient pharmacy picking tech this evening. Pt awaiting ride home. Will continue to monitor unitl discharged.
--- NOTE | 2022-05-22 18:48 | NUR ---
Pt left room via wheelchair at 1848.
== END 2022-05-22 18:48 | disposition home or self-care (01) ==
LOC: ER 12:09 → PCU 21:05
PROVIDERS: Emergency Medicine; Physician Assistant; Student in an Organized Health Care Education/Training Program; ADMIT Internal Medicine
DX: G40.909 Epilepsy, unspecified, not intractable, without status epilepticus (principal); S01.112A Laceration without foreign body of left eyelid and periocular area, initial encounter; X58.XXXA Exposure to other specified factors, initial encounter; Z86.73 Personal history of transient ischemic attack (TIA), and cerebral infarction without residual deficits; R94.31 Abnormal electrocardiogram [ECG] [EKG]
CPT/HCPCS: 36415; 70450; 80053; 82728; 82947; 83540; 83550; 83735; 85014; 85018; 85025; 93005; 93010; 96361; 96365; 96375; 96376; 99285-25; A9270; G0378; G0480; J1650; J1953; J2060; J7030

== ENCOUNTER 2023-04-16 22:40 | Emergency (ER) | payer MEDICARE, OTHER ==
[~2023-04-16] VITALS: Ht 157.5 cm; Wt 74.8 kg
[2023-04-16 22:48] VITALS: BP 175/98
[2023-04-17] MEDS ORDERED: Mupirocin22 GM TOP (00:33)
== END 2023-04-17 00:47 | disposition home or self-care (01) ==
LOC: ER 22:40
DX: S00.81XA Abrasion of other part of head, initial encounter (principal); S30.810A Abrasion of lower back and pelvis, initial encounter; L98.9 Disorder of the skin and subcutaneous tissue, unspecified; G40.909 Epilepsy, unspecified, not intractable, without status epilepticus; Z79.899 Other long term (current) drug therapy; X58.XXXA Exposure to other specified factors, initial encounter
CPT/HCPCS: 99282

== ENCOUNTER 2023-07-04 09:02 | Emergency (ER) | payer MEDICARE, OTHER ==
[~2023-07-04] VITALS: Ht 157.5 cm; Wt 77.1 kg
[~2023-07-04 09:02] MED LIST changes: +Mupirocin22 GM TOP
[2023-07-04 10:14] LABS: BASOPHILS ABSOLUTE AUTO 0.06 K/mm3 (0.00-0.23); BASOPHILS PERCENT AUTO 1 % (0-2); EOSINOPHILS PERCENT AUTO 1 % (0-6); Hematocrit 33.1 % (33.0-51.0); Hemoglobin 10.2 g/dL (11.5-16.0); IMMATURE GRAN ABSOLUTE AUTO 0.03 K/mm3 (0.00-0.10); IMMATURE GRAN PERCENT AUTO 0 % (0-1); LYMPHOCYTES ABSOLUTE AUTO 0.98 K/mm3 (0.84-5.20); LYMPHOCYTES PERCENT AUTO 9 % (21-46); MONOCYTES ABSOLUTE AUTO 0.54 K/mm3 (0.16-1.47); MONOCYTES PERCENT AUTO 5 % (4-13); Mean Corpuscular HGB 22.9 pg (26.0-34.0); Mean Corpuscular HGB Conc 30.8 g/dL (31.5-36.5); Mean Corpuscular Volume 74 fL (80-100); Mean Platelet Volume 9.5 fL (9.1-12.4); NEUTROPHILS PERCENT AUTO 84 % (41-73); Platelet Count 386 K/mm3 (150-400); RDW Coefficient Variation 18.3 % (11.7-14.2); RDW Standard Deviation 48.6 fL (35.1-46.3); Red Blood Cell Count 4.46 M/mm3 (3.80-5.20); White Blood Cell Count 10.51 K/mm3 (4.00-11.30)
[2023-07-04 10:59] LABS: Albumin, Blood 3.9 g/dL (3.4-5.0); Albumin/Globulin Ratio 0.9 (0.8-1.8); Bilirubin, Total 0.5 mg/dL (0.1-1.0); Bun/Creatinine Ratio 13.1 (12.0-20.0); Calcium, Blood 9.4 mg/dL (8.5-10.1); Creatinine, Blood 0.92 mg/dL (0.40-1.00); Globulin, Blood 4.4 g/dL (2.2-4.0); Magnesium, Blood 2.1 mg/dL (1.6-2.4); Potassium, Blood 3.2 mmol/L (3.5-5.5); Total Protein, Blood 8.3 g/dL (6.4-8.2)
[2023-07-04 15:55] VITALS: BP 169/88
== END 2023-07-04 16:06 | disposition home or self-care (01) ==
LOC: ER 09:02
PROVIDERS: Student in an Organized Health Care Education/Training Program
DX: T42.6X1A Poisoning by other antiepileptic and sedative-hypnotic drugs, accidental (unintentional), initial encounter (principal); E87.6 Hypokalemia; N17.9 Acute kidney failure, unspecified; R40.4 Transient alteration of awareness; G40.909 Epilepsy, unspecified, not intractable, without status epilepticus
CPT/HCPCS: 80053; 80175; 83735; 85025; 93005; 93010; 96361; 96365; 96366; 96375; 99284-25; A9270; J2765; J3480; J7030; J7050

== ENCOUNTER 2024-08-07 20:39 | Emergency (ER) | payer MEDICARE, OTHER ==
[~2024-08-07] VITALS: Ht 165.1 cm; Wt 59.0 kg
[2024-08-07] MEDS ORDERED: levETIRAcetam 1,500 MG in NS 100 ML IV ONE (22:50)
[2024-08-07] MEDS ORDERED: LamoTRIgine 25 MG Tab PO ONE (23:55)
[2024-08-08 00:30] VITALS: BP 159/78
[2024-08-08] MEDS ORDERED: LAMO100 PO (00:35)
== END 2024-08-08 00:55 | disposition home or self-care (01) ==
LOC: ER 20:39
DX: G40.909 Epilepsy, unspecified, not intractable, without status epilepticus (principal)
CPT/HCPCS: 93005; 93010; 96365; 99284-25; A9270; J1953